=== PATIENT | male | born 1975 | race African-American/Black ===

== ENCOUNTER 2017-03-07 20:04 | Emergency (ER) | payer SELFPAY ==
[2017-03-06] MEDS: SODIUM CHLORIDE 0.9% 500 ML IV ONE (23:30)
[~2017-03-07] VITALS: Ht 175.3 cm; Wt 79.0 kg
[2017-03-07 21:44] LABS: BASOPHILS % 0.3 % (0.0-2.0); CHLORIDE 100 mEq/L (98-107); EOSINOPHILS % 0.6 % (0.0-5.0); HEMOGLOBIN. 13.8 g/dL (14.0-18.0); LYMPHOCYTES % 19.5 % (20.0-50.0); MEAN CORPUSCULAR HEMOGLOBIN 32.7 pg (28.0-32.0); MEAN CORPUSCULAR VOLUME 92.6 fL (80.0-94.0); MEAN PLATELET VOLUME 6.6 fl (7.4-10.4); MONOCYTES % 7.5 % (2.0-8.0); NEUTROPHILS % 72.1 % (40.0-76.0); PLATELET 197 x1000/uL (130-400); RED BLOOD CELL COUNT 4.21 mill/uL (4.7-6.1); RED CELL DISTRIBUTION WIDTH 12.9 % (11.6-14.6)
[2017-03-07 21:47] LABS: PROTHROMBIN TIME 10.9 sec (9.4-11.6)
[2017-03-07 21:48] LABS: CARBON DIOXIDE 29 mEq/L (21-32)
[2017-03-07 21:54] LABS: TROPONIN I < 0.02 ng/mL (0.00-0.04)
[2017-03-07 22:01] LABS: *AMPHETAMINES SCREEN URINE NEGATIVE (NEGATIVE); *BARBITURATES SCREEN URINE NEGATIVE (NEGATIVE); *BENZODIAZEPINES SCREEN URINE NEGATIVE (NEGATIVE); *COCAINE SCREEN URINE NEGATIVE (NEGATIVE); CANNABINOID URINE SCREEN PRESUMTIVE POSITIVE (NEGATIVE); METHADONE URINE SCREEN NEGATIVE (NEGATIVE); OPIATES URINE SCREEN PRESUMTIVE POSITIVE (NEGATIVE); PHENCYCLIDINE URINE SCREEN NEGATIVE (NEGATIVE)
[2017-03-08 02:03] VITALS: BP 116/76
== END 2017-03-08 02:24 | disposition home or self-care (01) ==
LOC: ER 21:29
DX: F12.10 Cannabis abuse, uncomplicated (principal); F11.10 Opioid abuse, uncomplicated; R42 Dizziness and giddiness; R00.2 Palpitations; R11.10 Vomiting, unspecified
CPT/HCPCS: 36415; 71010; 80053; 80305; 83036; 83880; 84484; 85025; 85610; 85651; 93005; 96360; 96361; 99285; J7040; Z7610